=== PATIENT | female | born 2000 | race Asian ===

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

== ENCOUNTER 2021-05-23 11:28 | Emergency (ER) | payer BC, SELFPAY ==
[2021-05-23 11:28] VITALS: BP 101/75; PULSE 77; RESP 16; TEMP 35.8; BMI 19.7
--- NOTE | 2021-05-23 11:30 | RAD_ITS ---
STUDY: X-RAY - RIGHT ANKLE REASON FOR EXAM: Female, 21 years old. pain TECHNIQUE: 3 view(s) of the ankle. COMPARISON: None. FINDINGS: Normal visualized distal tibia and fibula. Normal medial and lateral malleoli. Normal tibiotalar articulation and ankle mortise. Normal visualized talus and calcaneus. The visualized subtalar, talonavicular, calcaneocuboid and tarsal articulations are normal. There is soft tissue edema laterally. RAD/Ankle min 3 Views IMPRESSION: No osseous injury. Lateral soft tissue injury. Electronically Signed: Rani Fagan MD at 12:17 EDT Tel , Service support ,
--- NOTE | 2021-05-23 12:21 | ED.VIS.LOWEX ---
HPI History of Present Illness Chief Complaint: Lower Extremity Injury Detail of Chief Complaint: Plantar inversion mechanism of injury last evening Informant: patient Onset/Context/Timing Onset: Yesterday Context: Sudden Onset Timing: Continuous Quality of Pain: Dull, Aching and Throbbing Location: Right ankle Current Severity: Mild Maximum Severity: Severe Worsened by: Movement, weightbearing, palpation Relieved by: Nothing Associated Symptoms Associated Symptoms: Positive for Loss of Funtion; Negative for Parasthesia and Weakness Narrative Narrative: Patient is a 21-year-old [employer] student who presents with a plantar inversion mechanism injury to her right ankle. This occurred last evening. She tripped on a curb. She complains of pain without paresthesia or anesthesia. She denies prior injury. Denies knee pain. Denies pain in her foot. She has no other complaints. Tetanus Immunization: 5-10 years Prior similar symptoms: No Recent Illness/Hospitalization: No PFSH PFSH Home Medications naproxen 500 mg PO BID #20 tablet 12/20/20 [Rx Last Taken Unknown] naproxen 500 mg PO BID #14 tab 05/23/21 [Rx Last Taken Unknown] Allergy/AdvReac Type Severity Reaction Status Date / Time No Known Allergies Allergy Verified 05/23/21 11:28 Social History (Updated 05/23/21 @ 12:[address] Mustapha Phillips MD) household members: other details: [employer] student Smoking Status: Never smoker substance use type: does not use ROS ROS ED Constitutional Constitutional ED: Denies chills, fever(s), subjective or sweats Musculoskeletal Musculoskeletal: Denies arthralgias, back pain, myalgias or neck pain Integumentary Denies Abrasions or rash Neurologic Neurologic: Denies paresthesias or weakness Hematologic/Lymphatic Hematologic/Lymphatic: Denies easy bleeding or easy bruising EXAM Physical Exam Const Vital Signs: 05/23/21 11:28 Temperature 96.5 F L Temperature Source Temporal Pulse Rate 77 Respiratory Rate 16 Blood Pressure 101/75 Blood Pressure Mean 83 Positive well nourished and well developed General Appearance ED: well developed and other Patient appears uncomfortable. HEENT normocephalic and atraumatic Eyes PERRL Eyes Narrative: Extract muscles are intact. Resp normal respiratory effort Cardio regular rate and regular rhythm Extremity full ROM; Negative for normal to inspection General Extremety ED: Negative for cyanosis, edema or weight-bearing difficulty General Extremity: other findings Other Details: There is swelling with pain elevation over the lateral malleolus, the anterior talofibular ligament and the calcaneofibular ligament. There is no tenderness over the Achilles tendon. The Achilles tendon is functionally intact. Is no pain to palpation of the base of fifth metatarsal. DP and PT pulse are palpable. There is no laxity with drawer testing. ; Negative for cyanosis, edema or weight-bearing difficulty Neuro oriented x3 and CN's II-XII intact bilaterally Sensorium / Orientation: alert Psych mental status grossly normal Skin no wounds Lesions: no lesions Rashes: no rashes MDM MDM MDM Narrative Medical decision making narrative: X-ray was obtained per protocol. Patient three-view x-rays interpreted by me as negative. Evidence of fracture, subluxation or dislocation. There is soft tissue swelling noted. 3 views were obtained. My interpretation was performed at 09/12/2006 Radiography Diagnostic Testing: Radiology Impression Ankle X-Ray 05/23/21 11:30 IMPRESSION: No osseous injury. Lateral soft tissue injury. Electronically Signed: Rani Fagan MD at 12:17 EDT Tel , Service support , Discharge Plan Triage Chief Complaint: Lower Extremity Injury ED Provider: Mustapha Phillips Dx/Rx/DC Orders Clinical Impression: Sprain of anterior talofibular ligament of right ankle Instructions: Ankle Dorsiflexion (Strength), Ankle Inversion (Strength), ED Ankle Sprain (Adult) Prescriptions: New naproxen 500 MG tablet 500 mg PO BID Qty: 14 RF: 0 No Action naproxen 500 MG tablet 500 mg PO BID Qty: 20 RF: 0 Primary Care Provider: Care Physician,No Primary Referrals: [facility] [GROUP OF PHYSICIANS] - 5-7 Days Care Physician,No Primary [Primary Care Provider] - Activity Restrictions/Additional Instructions: 1. Elevate ankle as much as possible 2. Apply ice 8-10 times a day 3. Take Naprosyn for pain 4. Wear boot for comfort. Disposition Disposition: Home, Self Care
--- NOTE | 2021-05-23 12:55 | CCN.REFER ---
pt left before medicated and without d/c papers.
== END 2021-05-23 12:59 | disposition home or self-care (01) ==
PROVIDERS: Emergency Provider Emergency Medicine
DX: S93.491A Sprain of other ligament of right ankle, initial encounter (principal); X50.1XXA Overexertion from prolonged static or awkward postures, initial encounter; Y93.9 Activity, unspecified; Y92.9 Unspecified place or not applicable; Y99.9 Unspecified external cause status
CPT/HCPCS: 73610; 99282